=== PATIENT | male | born 1970 | race Caucasian/White ===

== ENCOUNTER → 2017-12-10 | Outpatient (CLI) | payer OTHER ==
[~2017-12-10] VITALS: Ht 167.6 cm; Wt 90.7 kg
[~2017-12-10] MED LIST: ALEVE220 MG PO; MOTRIN800 MG PO; PERCOCET 5/31 TABLET PO; PROPECIA1 MG PO; SKELAXIN800 MG PO
== END | disposition home or self-care (01) ==
LOC: AMB 08:00
DX: K29.90 Gastroduodenitis, unspecified, without bleeding (principal); K20.9 Esophagitis, unspecified; K52.9 Noninfective gastroenteritis and colitis, unspecified; R11.0 Nausea
CPT/HCPCS: 88305; 88342 TC; J2250; J2405; J3010